=== PATIENT | female | born 2000 | race Caucasian/White ===

== ENCOUNTER → 2023-10-17 | Outpatient (CLI) | payer OTHER ==
[~2023-10-17] MED LIST: MEDR10 PO; RXPROCODSY PO; TRIAMINIC
[2023-10-21 21:10] LABS: CALPROTECTIN,FECAL 5 ug/g (<=49)
== END ==
LOC: LAB SHORT 13:18 → LAB 13:18
PROVIDERS: Physician Assistant Medical
DX: R11.0 Nausea (principal); R19.7 Diarrhea, unspecified
CPT/HCPCS: 83993